=== PATIENT | female | born 1970 | race Caucasian/White ===

== ENCOUNTER → 2020-09-24 09:34 | Outpatient (CLI) | payer OTHER, SELFPAY ==
--- NOTE | ~2020-09-24 | XR_ITS ---
XR lumbar spine 2-3V DATE: 09/24/2020 09:58 INDICATION: Low back pain TECHNIQUE: AP, lateral and coned lateral lumbosacral standing views COMPARISON: None FINDINGS: There is levoscoliosis of the thoracolumbar spine. There is grade 1 anterolisthesis at L4-5 secondary to degenerative change at the apophyseal joints. T here is moderate loss of interspace height and mild spurring at L4-5. The remaining lumbar interspace s appear relatively well preserved. No fracture or bone destruction. The lumbar pedicles are intact. The sacroiliac joints are unremarkab le. IMPRESSION: Grade 1 anterolisthesis and moderate degenerative disc disease at L4-5 Reviewed, dictated and finalized at location A. IMPRESSION: Grade 1 anterolisthesis and moderate degenerative disc disease at L 4-5
== END ==
DX: M51.36 Other intervertebral disc degeneration, lumbar region (principal)
CPT/HCPCS: 72100

== ENCOUNTER 2024-02-07 13:36 | Outpatient (CLI) | payer OTHER, SELFPAY ==
--- NOTE | 2024-02-07 13:45 | ECHO_ITS ---
Patient Info Name: Brittany Horton Age: 53 years : 1970 Gender: Female Ht: 67 in Wt: 165 lbs BSA: 1.89 m2 HR: 102 bpm BP: 88 / 74 mmHg Heart Rhythm: Sinus Rhythm Technical Quality: Good Exam Date: 02/07/2024 2:03 PM Exam Location: Echo Lab Patient Status: Outpatient Admit Date: 02/07/2024 Staff Ordering Physician: Alexandr Perry MD Gun Numberer: Talat Hauser RDCS Attending Provider: Alexandr Perry MD Referring Physician: Vicky PICKENS; Exam Type: CA echo doppler color flow Study Info Indications - murmur Complete two-dimensional, color flow and Doppler transthoracic echocardiogram is performed. Summary 1. Complete two-dimensional, color flow and Doppler transthoracic echocardiogram is performed. 2. Left ventricular chamber dimension is normal. 3. Left ventricular systolic function is normal, estimated at 60-65%. 4. The left ventricular diastolic function is grade I diastolic dysfunction. 5. E/e' 8 is minimally elevated. 6. There is trace tricuspid valve regurgitation. 7. No pulmonary hypertension, estimated pulmonary arterial systolic pressure is 18 mmHg. Left Ventricle E/e' 8 is minimally elevated. Left ventricular chamber dimension is normal. Left ventricular systolic function is normal, estimated at 60-65%. The left ventricular diastolic function is grade I diastolic dysfunction. Right Ventricle Right ventricular systolic function is normal and with normal TAPSE 2.8 cm. Right ventricular chamber dimension is normal. Left Atria Left atrial chamber dimension is normal. Right Atria Right atrial chamber dimension is normal. Aortic Valve The aortic valve is trileaflet. There is no aortic valve stenosis. There is no aortic valve regurgitation. Pulmonic Valve There is no pulmonic regurgitation. Mitral Valve There is no mitral valve stenosis. There is no mitral valve regurgitation. Tricuspid Valve There is trace tricuspid valve regurgitation. No pulmonary hypertension, estimated pulmonary arterial systolic pressure is 18 mmHg. Pericardium/Pleural There is no pericardial effusion. Inferior Vena Cava Normal inferior vena cava with >50% collapse upon inspiration consistent with normal right atrial pressure, 5 mmHg. Aorta The aortic root size at the sinus of Valsalva is normal. Left Ventricular Outflow Tract Name Value Normal LVOT 2D LVOT Diameter 2.0 cm LVOT Doppler LVOT Peak Gradient 2 mmHg LVOT Mean Gradient 1 mmHg LVOT VTI 17 cm LVOT VTI/AV VTI Ratio 0.8 LVOT Stroke Volume 52 ml LVOT CO 4.1 l/min LVOT CI 2.2 l/min/m2 Pulmonic Valve Name Value Normal RVOT Doppler RVOT Peak Gradient 3 mmHg PV Doppler
== END 2024-02-07 13:37 | disposition home or self-care (01) ==
PROVIDERS: PCP Family Medicine; Visit Provider Family Medicine
DX: R01.1 Cardiac murmur, unspecified (principal)
CPT/HCPCS: 93306

== ENCOUNTER 2024-03-21 12:45 | Outpatient (CLI) | payer OTHER, SELFPAY ==
--- NOTE | ~2024-03-21 | US_ITS ---
EXAMINATION:US venous doppler LE LT INDICATION:Left leg pain and swelling TECHNIQUE: Multiple grayscale, color flow and Doppler images of the left lower extremity deep venous systems were obtained and reviewed. COMPARISON:No prior studies for comparison. FINDINGS: The common femoral, superficial femoral and popliteal veins demonstrate normal respiratory variation, augmentation and compressibility. Color flow is also seen within the posterior tibial, pe roneal, greater saphenous and profunda veins. IMPRESSION: 1: No lower extremity deep venous thrombosis. Reviewed, dictated and finalized at location B.
== END 2024-03-21 12:46 | disposition home or self-care (01) ==
PROVIDERS: PCP Family Medicine
DX: M79.662 Pain in left lower leg (principal)
CPT/HCPCS: 93971

== ENCOUNTER 2025-09-26 11:33 | Emergency (ER) | payer OTHER, SELFPAY ==
[2025-09-26 12:02] VITALS: BP 145/83; PULSE 82; RESP 16; TEMP 36.2; O2SAT 99
[2025-09-26 12:28] LABS: EDSTREPNEGPOS1 Negative (Negative)
--- NOTE | 2025-09-26 12:43 | ED_ITS ---
HPI - URI/Sore Throat General Chief Complaint: Upper Respiratory Infection Stated Complaint: SORE THROAT Time Seen by Provider: 09/26/25 12:19 Source: patient and RN notes reviewed Mode of arrival: ambulatory Limitations: no limitations History of Present Illness HPI Narrative: 55-year-old female patient presents today complaining of sore throat, mild cough, postnasal drip, and hoarseness since yesterday. Denies fever, shortness of breath. She has tried Emergen-C without relief. States that her PCP calls her in a Zpak when she has a sore throat. States she believes for cruise tomorrow. Related Data Home Medications ?Medication ?Instructions ?Recorded ?Confirmed ?Last Taken ?Type magnesium 250 mg tablet 250 mg PO DAILY 04/17/2412/20 Unknown History estradiol 4 mcg vaginal insert, in 4 mcg vaginal DAILY 12/29/24 09/26/25 Unknown History a starter dose pack estrodim BYMOUTH 12/29/24 12/29/24 Un known History hydrocortisone 10 mg tablet 10 mg PO TID 12/29/2412/20 Unknown History cyclosporine 0.05 % eye drops in a drp 09/26/25 Unkno wn History dropperette (Restasis) Allergies Allergy/AdvReac Type Severity Reaction Status Date / Time No Known Allergies Allergy Verified 09/26/25 11:59 PMFSH Past Medical History Medical History Panhypopituitarism Degenerative disc disease, lumbar Personal history of colonic polyps Postprocedural hypothyroidism Meningioma Left lateral epicondylitis Surgical History Surgical History History of hysterectomy 2013 (uterus only) History of craniotomy April 23, 2019 for 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 Family History Family History Father Hypertension Mother Cancer Sibling , age 53 of colon cancer Colon cancer Sibling Breast cancer Social History Social History Smoking status: Never smoker Alcohol intake: current Drinks per week: 2 Substance use: never Substance use type: does not use Do You Feel Safe in your Home?: Yes Lack of Transportation: No Lack of Food: Never True Current Housing: I Have Housing Concerned About Future Housing: No Difficulty Paying Gas/Electric Bills: No Difficulty Paying for Meds: No Currently Unemployed: No Education: Bachelor's Degree Difficulty w/ Childcare or Family Care: No Living arrangements: with family Occupation/Education: occupation 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 Please see nursing chart for further information. There is no relevant family history pertinent to the presenting complaint Exam Narrative: GENERAL: Mildly ill-appearing, well-nourished, and in no acute distress. HEAD: Normocephalic, atraumatic. EYES: EOMI. No redness or drainage. Conjunctivae normal. ENT: Mucous membranes pink and moist. Nares mildly congested. No rhinorrhea. TMs normal bilaterally. Throat mildly erythematous without edema or exudate. Uvula midline. NECK: Normal AROM. Supple. No lymphadenopathy. CHEST: No respiratory distress. Clear to auscultation. HEART: Regular rate and rhythm. No murmur appreciated. EXTREMITIES: Normal range of motion. No edema. SKIN: Warm, dry, no rash. Capillary refill normal. Normal skin turgor. NEURO: No focal deficits. Alert and oriented x3. Gait steady. PSYCH: Normal affect. No signs of depression or anxiety. Course Course Level of Care: Express Care Visit Vital Signs Vital signs: Vital Signs Temperature 97.2 F L 09/26/25 12:02 Pulse Rate 82 09/26/25 12:02 Respiratory Rate 16 09/26/25 12:02 Blood Pressure 145/83 H 09/26/25 12:02 Pulse Oximetry 99 09/26/25 12:02 Temperature 97.2 F L 09/26/25 12:02 Pulse Rate 82 09/26/25 12:02 Respiratory Rate 16 09/26/25 12:02 Blood Pressure 145/83 H 09/26/25 12:02 Pulse Oximetry 99 09/26/25 12:02 Reviewed MDM - URI/Sore Throat MDM Narrative Medical decision making narrative: Upon exam, patient was mildly ill appearing with mild congestion, mildly erythematous throat without edema or exudate. Rapid strep negative. Culture pending. Patient is getting ready to leave for a cruise vacation tomorrow. States that anytime she gets a sore throat she receives a Zpak from her PCP. 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 Vital signs stable. Patient agrees with. Anticipatory guidance given. Differential Diagnosis Differential diagnosis: Likely upper respiratory infection, viral infection, pharyngitis and other (Strep throat) Lab Data Attestation: I reviewed the patient's lab results. Labs: Lab Results 09/26/25 Range/Units 12:26 POC Grp A Strep Screen Negative (Negative) Critical Care Time Critical Care Time Critical Care Time: No Discharge Plan Discharge Clinical Impression: Pharyngitis Qualifiers: Pharyngitis/tonsillitis etiology: unspecified etiology Qualified Code(s): J02.9 - Acute pharyngitis, unspecified Patient Disposition: Home Condition: Stable Instructions: Pharyngitis (ED) Additional Instructions: Your rapid strep swab was negative today at [facility]. You will be notified in a few days if the culture comes back positive for strep. Take the Azithromycin as prescribed. Take Tylenol or ibuprofen for fever or pain. Rest and stay hydrated. Follow up with your PCP in 7 days if symptoms are not improving. Go to the ER immediately if you have any difficulty breathing or swallowing. Patient Language: Nicaraguan Prescriptions: New azithromycin 500 mg tablet 500 mg PO DAILY 3 Days Qty: 3 0RF No Action cyclosporine [Restasis] 0.05 % dropperette magnesium 250 mg tablet 250 mg PO DAILY estrodim BYMOUTH estradiol 4 mcg insert, dose pack 4 mcg vaginal DAILY hydrocortisone 10 mg tablet 10 mg PO TID mirtazapine 30 mg tablet 30 mg PO QHS Qty: 90 1RF levothyroxine [Synthroid] 112 mcg tablet 112 mcg PO DAILY Qty: 90 3RF scopolamine base 1 mg over 3 days patch 3 day 1 patch transdermal Q3D PRN (Reason: motion sickness) Qty: 4 0RF Follow-up/Referrals: Alexandr Perry MD [Primary Care Provider, [facility]] Time of Disposition: 12:43
== END 2025-09-26 12:51 | disposition home or self-care (01) ==
PROVIDERS: Emergency Provider Nurse Practitioner; PCP Family Medicine
DX: J02.9 Acute pharyngitis, unspecified (principal); M51.369 Other intervertebral disc degeneration, lumbar region without mention of lumbar back pain or lower extremity pain
CPT/HCPCS: 87081; 87880; 99213; G0463